=== PATIENT | female | born 1955 | race Caucasian/White ===

== ENCOUNTER 2017-10-23 01:00 | Emergency (ER) | payer MEDICARE, OTHER ==
[~2017-10-23] VITALS: Ht 154.9 cm; Wt 68.0 kg
--- NOTE | 2017-10-23 01:11 | PD ---
HPI Chief Complaint: Not feeling well Time Seen by Provider: 01:06 Travel History International Travel<30 days: No Contact w/Intl Traveler<30days: No History of Present Illness HPI 62yo F with PMH of CVA with left sided residual weakness and numbness, HTN here with c/o not feeling well for an hour. Pt denies any fever, headache, visual changes, chest pain, sob, n/v, abdominal pain, new focal weakness or numbness, fall. PFSH Social History Tobacco Use: No Allergies-Medications (Allergen,Severity, Reaction): Coded Allergies: No Known Allergies (Verified Allergy, Unknown, 10/23/17) Reported Meds & Prescriptions Reported Meds & Active Scripts Active Bactrim DS (Sulfamethoxazole-Trimethoprim) 800-160 Mg Tab 1 Tab PO BID Reported Senokot (Sennosides) 8.6 Mg Tab 8.6 Mg PO HS Prozac (Fluoxetine HCl) 20 Mg Cap 20 Mg PO DAILY Aspirin Low Dose (Aspirin) 81 Mg Chew 81 Mg CHEW DAILY Review of Systems Except as stated in HPI: all other systems reviewed are Neg Physical Exam Narrative GENERAL: 62yo F not in distress. SKIN: Focused skin assessment warm/dry. HEAD: Atraumatic. Normocephalic. EYES: Pupils equal and round. No scleral icterus. No injection or drainage. ENT: No nasal bleeding or discharge. Mucous membranes pink and moist. NECK: Trachea midline. No JVD. CARDIOVASCULAR: Regular rate and rhythm. No murmur appreciated. RESPIRATORY: No accessory muscle use. Clear to auscultation. Breath sounds equal bilaterally. GASTROINTESTINAL: Abdomen soft, non-tender, nondistended. MUSCULOSKELETAL: No obvious deformities. No clubbing. No cyanosis. No edema. NEUROLOGICAL: AAOx3. No obvious cranial nerve deficits. Decreased muscle strength and sensation in left arm and leg which is not new. Normal speech. PSYCHIATRIC: Tearful. Data Data Last Documented VS Vital Signs Date Time Temp Pulse Resp B/P (MAP) Pulse Ox O2 Delivery O2 Flow Rate FiO2 10/23/17 01:26 78 97 Room Air 10/23/17 01:21 98.4 18 145/89 (107) Orders Orders Electrocardiogram (10/23/17 ) Complete Blood Count With Diff (10/23/17 01:08) Basic Metabolic Panel (Bmp) (10/23/17 01:08) Magnesium (Mg) (10/23/17 01:08) Urinalysis - C+S If Indicated (10/23/17 01:08) Urine Culture (10/23/17 01:50) Ceftriaxone Inj (Rocephin Inj) (10/23/17 02:45) Sodium Chlorid 0.9% 500 Ml Inj (Ns 500 M (10/23/17 02:45) Acetaminophen (Tylenol) (10/23/17 03:00) Ed Discharge Order (10/23/17 05:07) Labs Laboratory Tests Test 10/23/17 01:50 White Blood Count 9.0 TH/MM3 Red Blood Count 4.49 MIL/MM3 Hemoglobin 13.9 GM/DL Hematocrit 41.8 % Mean Corpuscular Volume 93.0 FL Mean Corpuscular Hemoglobin 31.0 PG Mean Corpuscular Hemoglobin Concent 33.3 % Red Cell Distribution Width 12.6 % Platelet Count 351 TH/MM3 Mean Platelet Volume 8.2 FL Neutrophils (%) (Auto) 61.0 % Lymphocytes (%) (Auto) 29.0 % Monocytes (%) (Auto) 7.0 % Eosinophils (%) (Auto) 2.3 % Basophils (%) (Auto) 0.7 % Neutrophils # (Auto) 5.5 TH/MM3 Lymphocytes # (Auto) 2.6 TH/MM3 Monocytes # (Auto) 0.6 TH/MM3 Eosinophils # (Auto) 0.2 TH/MM3 Basophils # (Auto) 0.1 TH/MM3 CBC Comment DIFF FINAL Differential Comment Urine Color YELLOW Urine Turbidity CLOUDY Urine pH 5.5 Urine Specific [place] 1.020 Urine Protein NEG mg/dL Urine Glucose (UA) NEG mg/dL Urine Ketones NEG mg/dL Urine Occult Blood NEG Urine Nitrite NEG Urine Bilirubin NEG Urine Urobilinogen 0.2 MG/DL Urine Leukocyte Esterase MOD Urine RBC 4-9 /hpf Urine WBC 25-49 /hpf Urine Squamous Epithelial Cells 6-8 /hpf Urine Amorphous Sediment FEW Urine Bacteria MOD /hpf Urine Mucus MOD /lpf Microscopic Urinalysis Comment CULTURE INDICATED Blood Urea Nitrogen 21 MG/DL Creatinine 0.87 MG/DL Random Glucose 112 MG/DL Calcium Level 9.1 MG/DL Magnesium Level 2.5 MG/DL Sodium Level 140 MEQ/L Potassium Level 3.5 MEQ/L Chloride Level 105 MEQ/L Carbon Dioxide Level 27.3 MEQ/L Anion Gap 8 MEQ/L Estimat Glomerular Filtration Rate 66 ML/MIN [facility] Medical Decision Making Medical Screen Exam Complete: Yes Emergency Medical Condition: Yes Interpretation(s) EKG: NSR 75bpm. Normal axis. No significant ST elevation or depression. Differential Diagnosis UTI vs. electrolyte abnormality vs. dehydration vs. anxiety Narrative Course 62yo F with c/o not feeling well. Pt has no specific complaints at all and is well appearing. Labs reviewed, no leukocytosis. H/H normal. BUN mildly elevated at 21. Creatinine normal. UA showed moderate leukocyte. WBC 25-49. Pt given ceftriaxone IV and NS IVF. Pt has no nausea or vomiting and tolerating PO so can prescribe PO antibiotics. Pt started complaining about being uncomfortable and pain in her left side so acetaminophen given. Pt reevaluated at bedside and feels better. Return precautions given. Pt's stepmother is coming to get her. Diagnosis Primary Impression: UTI (urinary tract infection) Qualified Codes: N39.0 - Urinary tract infection, site not specified Additional Impression: Dehydration Patient Instructions: General Instructions Departure Forms: Tests/Procedures Additional Instructions: Please follow up with your primary care physician in 2-3 days. Return to the ED if symptoms worsen. Med/Other Pt SpecificInfo: Prescription(s) given Scripts Sulfamethoxazole-Trimethoprim (Bactrim DS) 800-160 Mg Tab 1 TAB PO BID for Infection, #20 TAB 0 Refills Prov: Kristin Mayen 10/23/17 Disposition: 01 DISCHARGE HOME Condition: Stable MayenKristin DO Oct 23, 2017 01:10
[2017-10-23] MEDS ORDERED: PROZ20CA11 PO (01:20)
[2017-10-23] MEDS ORDERED: ASPI81CH6 CHEW (01:20)
[2017-10-23] MEDS ORDERED: SENO8.6T5 PO (01:20)
[2017-10-23 01:21] VITALS: BP 145/89; PULSE 78; RESP 18; TEMP 98.4; O2SAT 97
[2017-10-23 02:09] LABS: BILIRUBIN, URINE NEG (NEG); BLOOD, URINE NEG (NEG); GLUCOSE,URINE NEG (NEG); KETONE, URINE NEG (NEG); NITRITE,URINE NEG (NEG); PH, URINE 5.5 (5.0-8.5); URINE COLOR YELLOW (YELLW/STRAW); URINE LEUKOCYTE ESTERASE MOD (NEG)
[2017-10-23 02:10] LABS: AUTOMATED NEUTROPHIL # 5.5 TH/MM3 (1.8-7.7); BASOPHIL # 0.1 TH/MM3 (0-0.2); BASOPHIL % 0.7 % (0.0-2.0); EOSINOPHIL # 0.2 TH/MM3 (0-0.4); EOSINOPHIL % 2.3 % (0.0-4.0); HEMATOCRIT 41.8 % (35.0-46.0); HEMOGLOBIN 13.9 GM/DL (11.6-15.3); LYMPHOCYTE # 2.6 TH/MM3 (1.0-4.8); MEAN CORPUSCULAR HGB CONC 33.3 % (32.0-36.0); MEAN PLATELET VOLUME 8.2 FL (7.0-11.0); MONOCYTE # 0.6 TH/MM3 (0-0.9); PLATELET COUNT 351 TH/MM3 (150-450); RED BLOOD COUNT 4.49 MIL/MM3 (4.00-5.30); RED CELL DISTRIBUTION WIDTH 12.6 % (11.6-17.2)
[2017-10-23 02:14] LABS: MUCUS URINE MOD /lpf (OCC)
[2017-10-23 02:15] LABS: AMORPHOUS SEDIMENT, URINE FEW; BACTERIA, URINE MOD /hpf
[2017-10-23 02:25] LABS: BICARBONATE 27.3 MEQ/L (21.0-32.0); CALCIUM 9.1 MG/DL (8.5-10.1); MAGNESIUM 2.5 MG/DL (1.5-2.5)
[2017-10-23 02:29] LABS: CREATININE 0.87 MG/DL (0.50-1.00)
[2017-10-23] MEDS ORDERED: SODIUM CHLORID 0.9% 500 ML INJ 500 ML IV ONE (02:45)
[2017-10-23] MEDS ORDERED: cefTRIAXone INJ 1,000 MG in SODIUM CHLORIDE 0.9% INJ 100 ML IV ONE (02:45)
[2017-10-23] MEDS ORDERED: ACETAMINOPHEN 325 MG TAB PO ONE (03:00)
[2017-10-23] MEDS ORDERED: BACT800T5 PO (03:28)
[2017-10-23 05:31] VITALS: BP 144/86; PULSE 76; RESP 18; O2SAT 97
--- NOTE | 2017-10-23 15:27 | EKG ---
Date Performed: 10/23/2017 Time Performed: 01:24:58 PTAGE: 62 years EKG: Sinus rhythm MODERATE INTRAVENTRICULAR CONDUCTION DELAY NONSPECIFIC ST ELEVATION BORDERLINE ECG NO PREVIOUS TRACING DOCTOR: Abdelrahman Ma Interpretating Date/Time 10/23/2017 15:24:53
== END 2017-10-23 05:33 | disposition home or self-care (01) ==
LOC: PHED 01:00
DX: N39.0 Urinary tract infection, site not specified (principal); B96.1 Klebsiella pneumoniae [K. pneumoniae] as the cause of diseases classified elsewhere; E86.0 Dehydration; R94.31 Abnormal electrocardiogram [ECG] [EKG]; I10 Essential (primary) hypertension; I69.354 Hemiplegia and hemiparesis following cerebral infarction affecting left non-dominant side
CPT/HCPCS: 80048; 81001; 83735; 85025; 87077; 87086; 87186; 93005; 96361; 96365; 99284; J0696; J7040